=== PATIENT | male | born 1955 | race Caucasian/White ===

== ENCOUNTER 2018-01-16 19:17 | Emergency (ER) | payer BC ==
[~2018-01-16] VITALS: Ht 185.4 cm; Wt 78.2 kg
[2018-01-16 19:21] VITALS: TEMP 97.9
[2018-01-16 20:21] LABS: BASO % 0.6 % (0.0-2.0); EOS # 0.1 (0.0-0.7); EOS % 1.9 % (0-4.0); GRAN # 2.1 (1.4-6.5); GRAN % 66.6 % (42.2-75.2); HEMATOCRIT 33.2 % (42.0-52.0); HEMOGLOBIN 11.5 g/dl (13.5-18.0); LYMPH # 0.8 (1.2-3.4); LYMPH % 24.2 % (20.0-51.0); MEAN CELL VOLUME 84 fl (80.0-100.0); MEAN CORPUSCULAR HEMOGLOBIN 29 pg (27.0-31.0); MEAN CORPUSCULAR HGB CONC 35 g/dl (33.0-37.0); MEAN PLATELET VOLUME 10.7 fl (7.4-10.4); MONO # 0.2 (0.1-0.6); MONO % 6.7 % (1.7-9.3); PLATELET COUNT 122 K/mm3 (130-400); RED BLOOD COUNT 3.97 M/mm3 (4.20-5.60); REDCELL DISTRIBUTION WIDTH-CV 14.8 % (11.5-14.5)
[2018-01-16 20:27] LABS: INR 1.1 (0.8-3.0); PROTHROMBIN TIME 12.3 SECONDS (9.7-12.8)
[2018-01-16 20:37] LABS: ALANINE AMINOTRANSFERASE 29 U/L (21-72); ALBUMIN 4.2 gm/dL (3.5-5.0); ALKALINE PHOSPHATASE 110 U/L (50-136); ANION GAP 11 mmol/L (7-16); AST,SGOT 20 U/L (15-37); BILIRUBIN,TOTAL 1.4 mg/dL (0.0-1.0); BLOOD UREA NITROGEN 23 mg/dL (9-20); CARBON DIOXIDE 30 mmol/L (22-30); CHLORIDE 92 mmol/L (98-107); CREATININE, serum 0.98 mg/dL (0.66-1.25); GLUCOSE 179 mg/dL (74-106); POTASSIUM 3.2 mmol/L (3.4-5.0); SODIUM 133 mmol/L (137-145); TOTAL PROTEIN 7.8 gm/dL (6.4-8.2)
[2018-01-16] MEDS ORDERED: COZAAR 25MG25 MG/TAB PO (20:38)
[2018-01-16] MEDS ORDERED: CATAPRES 0.1MG0.1 MG PO (20:41)
[2018-01-16] MEDS ORDERED: NORVASC2.5 MG PO (20:41)
[2018-01-16 20:49] LABS: TROPONIN-I < 0.012 ng/mL (0.000-0.034)
[2018-01-17 00:23] VITALS: BP 143/86; PULSE 52
== END 2018-01-17 00:32 | disposition home or self-care (01) ==
LOC: COL.ER 19:17
PROVIDERS: Emergency Medicine
DX: R42 Dizziness and giddiness (principal); E86.1 Hypovolemia; I10 Essential (primary) hypertension; Z90.89 Acquired absence of other organs; Z98.890 Other specified postprocedural states
CPT/HCPCS: J2765; J7030; Q9967